=== PATIENT | female | born 1975 | race Caucasian/White ===

== ENCOUNTER 2017-12-24 11:37 | Observation (INO) ==
[2017-12-24] MEDS ORDERED: ONDANSETRON 4 MG/2 ML VIAL IV STA (12:04)
[2017-12-24] MEDS ORDERED: HYDROmorphone 2 MG/1 ML VIAL IV STA ×4 (12:04→15:40)
[2017-12-24] MEDS ORDERED: HYDROmorphone 2 MG/1 ML VIAL ONE ×3 (12:08→15:39)
[2017-12-24] MEDS ORDERED: ONDANSETRON 4 MG/2 ML VIAL ONE (12:08)
[2017-12-24 12:32] LABS: Basophils % 0.5 % (0.0-0.8); Eosinophils # 0.1 10*3/uL (0.0-0.87); Eosinophils % 1.5 % (0.00-10.9); Hematocrit 41.7 VOL% (35.7-47.0); Immature Granulocytes % 0.2 %; Immature Granulocytes Absolute 0.02 #; Lymphocytes # 2.5 10*3/uL (1.4-4.0); Lymphocytes % 28.7 % (21.3-54.2); Mean Corpuscular HGB Conc 33.6 GM/DL (32-36); Mean Corpuscular Hemoglobin 28 PG (27-34); Mean Corpuscular Volume 82.2 FL (87-102); Monocytes # 0.3 10*3/uL (0.11-0.8); Monocytes % 3.7 % (1.7-12.7); Neutrophils # 5.6 10*3/uL (1.4-7.4); Neutrophils % 65.4 % (38.7-73.9); Platelet Count 250 T/CUMM (130-400); Red Blood Count 5.07 MC/CUMM (3.8-5.5); Red Cell Distribution Width 13.9 % (9.3-17.3); White Blood Count 8.6 T/CUMM (4-12)
[2017-12-24 13:13] LABS: Lactic Acid 2.3 MMOL/L (0.4-2.0)
[2017-12-24 13:15] LABS: Alanine Aminotransferase 30 U/L (13-56); Albumin 3.7 G/DL (3.4-5.0); Alkaline Phosphatase 107 U/L (45-117); Aspartate Amino Transferase 16 U/L (0-37); Bilirubin,Total < 0.39 MG/DL (0.2-1.0); Blood Urea Nitrogen 19 MG/DL (7-18); Calcium 8.9 MG/DL (8.5-10.1); Glucose 108 MG/DL (74-106); Osmolality,Calculated 279.5 MOS/KG (273-304); Potassium 3.9 MMOL/L (3.5-5.1); Sodium 139 MMOL/L (136-145); Troponin I Only < 0.015 NG/ML (0.00-0.045)
[2017-12-24 14:01] LABS: Apearance,Urine CLEAR (Clear); Bilirubin,Urine Negative (Negative); Blood, Urine Negative (Negative); Glucose,Urine (UA) Negative (Negative); Ketones,Urine Negative (Negative); Mucus,Urine Occasional /LPF (Occasional); Nitrite,Urine Negative (Negative); Protein,Urine Negative; RBC,Urine 1 /HPF (0-4); Squamous Epithelial Cell,Urine Occasional /HPF (0-10); Urine Color Yellow (Yellow); Urine Specific Gravity 1.018 (1.001-1.035); Urine Urobilinogen < 2.0 EU/DL (0.2-1.0); WBC,Urine <1 /HPF (0-6)
[2017-12-24] MEDS ORDERED: HYDROmorphone 2 MG/1 ML VIAL IV PRN (15:43)
[2017-12-24] MEDS ORDERED: ACETAMINOPHEN 325 MG TABLET PO PRN (15:43)
[2017-12-24] MEDS ORDERED: LEVOFLOXACIN INJ 750 MG in PREMIX 1 EACH IV SCH (17:00)
[2017-12-24] MEDS: SODIUM CHLORIDE 0.45% 1,000 ML IV SCH (17:41)
[2017-12-24] MEDS: ONDANSETRON 4 MG/2 ML VIAL IV PRN (19:25)
[2017-12-24] MEDS ORDERED: KETOROLAC 30 MG/1 ML VIAL IV ONE (21:00)
[2017-12-25] MEDS: ONDANSETRON 4 MG/2 ML VIAL IV PRN (01:02)
[2017-12-25] MEDS: KETOROLAC 15 MG/1 ML VIAL IV SCH ×2 (03:00→09:15)
[2017-12-25] MEDS: SODIUM CHLORIDE 0.45% 1,000 ML IV SCH (03:00)
[2017-12-25 05:58] LABS: Albumin 3.4 G/DL (3.4-5.0); Bilirubin,Total 0.6 MG/DL (0.2-1.0); Calcium 8.7 MG/DL (8.5-10.1); Osmolality,Calculated 272.7 MOS/KG (273-304); Potassium 4.1 MMOL/L (3.5-5.1); Total Protein 6.6 G/DL (6.4-8.3)
[2017-12-25] MEDS ORDERED: ENOXAPARIN 40 MG/0.4 ML SYRINGE SUBCUT SCH (09:00)
[2017-12-25] MEDS ORDERED: PANTOPRAZOLE 40 MG TABLET PO SCH (09:00)
[2017-12-25 11:19] VITALS: BP 104/70
== END 2017-12-25 14:32 | disposition home or self-care (01) ==
LOC: N.EDINP 11:37 → N.ED 11:37 → N.EDINP 16:27 → N.3E 16:46
PROVIDERS: ADMIT Surgery; ATTEND Surgery